=== PATIENT | female | born 1985 | race Caucasian/White ===

== ENCOUNTER 2017-01-09 15:02 | Observation (INO) | payer OTHER ==
[2017-01-09 15:10] VITALS: RESP 16
[2017-01-09] MEDS ORDERED: TDAP ADULT 0.5 ML INJ (BOOSTRIX) IM ONE (15:26)
[2017-01-09] MEDS ORDERED: AMPICILLIN/SULBACTAM 3 GM in NS 100 ML IV ONE (15:28)
--- NOTE | 2017-01-09 15:32 | EDPHY ---
H & P Stated Complaint: l thumb lac (dogbite yesterday) uc gave keflex (had 1 dose)& augm(not taken) Time Seen by Provider: 01/09/17 15:21 HPI/ROS: CHIEF COMPLAINT: Dog bite left thumb HISTORY OF PRESENT ILLNESS: 31-year-old immunocompetent female visiting from [place], in [place] for few more days, was accidentally bitten by her friend's dog yesterday. Bitten on the left thumb. Dogs a domesticated dog with up-to- date immunizations and is still in custody of the screw supervisor . Since this morning the patient noted swelling, limited to no range of motion and lymphangitic streaking . No fever no chills. No nausea or vomiting. No nuchal rigidity. No headache. No chest pain. No abdominal pain. PRIMARY CARE PROVIDER: out of town REVIEW OF SYSTEMS: A ten point review of systems was performed and is negative with the exception of the items mentioned in the HPI PAST MEDICAL & SURGICAL HISTORY: tetanus is out-of-date. No history of immunocompromised or suppressed condition SOCIAL HISTORY:visiting from [place] PHYSICAL EXAM (Prior to examination, patient consented to physical exam, hands were washed and my usual and customary physical exam procedures followed) 1) GENERAL: Well-developed, well-nourished, alert and oriented. Appears nontoxic 2) HEAD: Normocephalic, atraumatic 3) HEENT: Sclera anicteric. 4) NECK: Full range of motion, no meningeal signs. 5) LUNGS: Clear auscultation bilaterally. 6) HEART: Regular rate and rhythm 7) ABDOMEN: No guarding, no rebound, no focal tenderness, 8) MUSCULOSKELETAL: left hand: Patient has positive kanavel sign. Patient has a puncture wound on the lateral and medial aspect of the left thumb at approximately the level of the IP joint. The thumb is erythematous, indurated, swollen, she is keeping the thumb in slight flexion. She has tenderness along the flexor tendon sheath and pain with passive flexion. There is associated lymphangitic streaking extending to approximately the distal 3rd of the forearm 9) BACK: no visual or palpable abnormality. 10) SKIN: left thumb erythema, see musculoskeletal exam findings DIFFERENTIAL DIAGNOSIS: in no particular order including but not limited to traumatic arthrotomy of the left thumb at the IP joint, cellulitis left thumb , infectious tenosynovitis - Personal History LMP (Females 10-55): 15-21 Days Ago Current Tetanus/Diphtheria Vaccine: Unsure Current Tetanus Diphtheria and Acellular Pertussis (TDAP): Unsure - Medical/Surgical History Hx Asthma: No Hx Chronic Respiratory Disease: No Hx Diabetes: No Hx Cardiac Disease: No Hx Renal Disease: No Hx Cirrhosis: No Hx Alcoholism: No Hx HIV/AIDS: No Hx Splenectomy or Spleen Trauma: No Other PMH: denies - Social History Smoking Status: Never smoked Constitutional: Initial Vital Signs Temperature (C) 36.5 C 01/09/17 15:07 Heart Rate 68 01/09/17 15:07 Respiratory Rate 16 01/09/17 15:07 Blood Pressure 122/42 H 01/09/17 15:07 O2 Sat (%) 98 01/09/17 15:07 O2 Delivery Mode Room Air Allergies/Adverse Reactions: No Known Allergies Allergy (Unverified 01/09/17 15:05) Home Medications: Medication Instructions Recorded Augmentin 875 MG TAB (*) 01/09/17 Keflex 01/09/17 Medical Decision Making Procedures: Procedure: Splint A Velcro thumb spica splint was applied by ER automation technician. After application of the splint I returned and re-examined the patient. The splint was adequately immobilizing the joint and distal to the splint the patient's circulation and sensation were intact. Patient shows no signs of compartment syndrome. ED Course/Re-evaluation: Discussed the case with secondary supervising physician Dr. Skinny Wiley who also evaluated the patient. Of concern in this patient is positive kanavel sign to the left thumb concerning for infectious tenosynovitis. She has been informed that I cannot rule out traumatic arthrotomy with IP joint as she is noted to have a puncture wound in this general location. I have recommended starting the patient on IV antibiotics, updating her tetanus, admission to the hospital and having Hand surgery consultation. She is agreeable with this. She has no history of chronic skin infections, no known history of MRSA. Will administer Unasyn and Ancef to cover pasteurella, staph and strep 3:38 p.m.: Phone consultation with Hand surgery Dr. Edwin Dow who agrees with the plan of Unasyn , Ancef, recommends to place her in a Velcro thumb spica and he will consult for hand surgery. 4:07 p.m.: Consultation with hospitalist Dr. Awad who will admit patient - Data Points Laboratory Results: Laboratory Results 01/09/17 15:52 01/09/17 01/09/17 01/09/17 15:52 15:52 15:52 WBC 5.87 10^3/uL 10^3/uL (3.80-9.50) RBC 4.26 10^6/uL 10^6/uL (4.18-5.33) Hgb 13.0 g/dL g/dL (12.6-16.3) Hct 38.0 % % (38.0-47.0) MCV 89.2 fL fL (81.5-99.8) MCH 30.5 pg pg (27.9-34.1) MCHC 34.2 g/dL g/dL (32.4-36.7) RDW 12.4 % % (11.5-15.2) Plt Count 176 10^3/uL 10^3/uL (150-400) MPV 12.2 fL H fL (8.7-11.7) Neut % (Auto) 63.7 % % (39.3-74.2) Lymph % (Auto) 27.6 % % (15.0-45.0) [place] % (Auto) 6.5 % % (4.5-13.0) Eos % (Auto) 1.0 % % (0.6-7.6) Baso % (Auto) 0.9 % % (0.3-1.7) Nucleat RBC Rel Count 0.0 % % (0.0-0.2) Absolute Neuts (auto) 3.74 10^3/uL 10^3/uL (1.70-6.50) Absolute Lymphs (auto) 1.62 10^3/uL 10^3/uL (1.00-3.00) Absolute Monos (auto) 0.38 10^3/uL 10^3/uL (0.30-0.80) Absolute Eos (auto) 0.06 10^3/uL 10^3/uL (0.03-0.40) Absolute Basos (auto) 0.05 10^3/uL 10^3/uL (0.02-0.10) Absolute Nucleated RBC 0.00 10^3/uL 10^3/uL (0-0.01) Immature Gran % 0.3 % % (0.0-1.1) Immature Gran # 0.02 10^3/uL 10^3/uL (0.00-0.10) Sodium Pending Potassium Pending Chloride Pending Carbon Dioxide Pending Anion Gap Pending BUN Pending Creatinine Pending Estimated GFR Pending Glucose Pending Calcium Pending Beta HCG, Qual Pending Departure - Departure Disposition: [facility] Inpatient Acute Clinical Impression: Left thumb infectious tenosynovitis Dog bite of left thumb with infection Qualifiers: Encounter type: initial encounter Qualified Code(s): S61.052A - Open bite of left thumb without damage to nail, initial encounter Condition: Fair
[2017-01-09 16:01] LABS: % IMMATURE GRANULYOCYTES 0.3 % (0.0-1.1); ABSOLUTE IMMATURE GRANULOCYTES 0.02 10^3/uL (0.00-0.10); ADD DIFF? NO; ADD MORPH? NO; ADD SCAN? NO; ATYPICAL LYMPHOCYTE FLAG 0 (0-99); FRAGMENT RBC FLAG 0 (0-99); LEFT SHIFT FLG 0 (0-99); LIPEMIA HEMOLYSIS FLAG 90 (0-99); MEAN CELL HEMOGLOBIN 30.5 pg (27.9-34.1); MEAN CELL HEMOGLOBIN CONCENTR. 34.2 g/dL (32.4-36.7); MEAN CELL VOLUME 89.2 fL (81.5-99.8); MEAN PLATELET VOLUME 12.2 fL (8.7-11.7); PLATELET CLUMPS FLAG 0 (0-99); PLATELET COUNT 176 10^3/uL (150-400); RED BLOOD CELL COUNT 4.26 10^6/uL (4.18-5.33); RED CELL DISTRIBUTION WIDTH 12.4 % (11.5-15.2)
[2017-01-09 16:18] LABS: ANION GAP 11 mEq/L (8-16); CALCIUM 9.6 mg/dL (8.5-10.4); CARBON DIOXIDE 26 mEq/l (22-31); CHLORIDE 103 mEq/L (97-110); CREATININE 0.7 mg/dL (0.6-1.0); GLOMERULAR FILTRATION RATE > 60; GLUCOSE 87 mg/dL (70-100); POTASSIUM 3.6 mEq/L (3.5-5.2); SODIUM 140 mEq/L (134-144)
--- NOTE | 2017-01-09 17:11 | GHP ---
[f rep st] HISTORY AND PHYSICAL DATE OF ADMISSION: 01/09/2017 CHIEF COMPLAINT: Left thumb pain and redness. HISTORY OF PRESENT ILLNESS: The patient is a 31-year-old female seen at the request of the emergenc y room team and Dr. Awad for evaluation of her left thumb. She was bitten by a dog yesterday and had increased swelling and redness. She is being admitted to the hospital for evaluation, manageme nt and IV antibiotics. PAST MEDICAL HISTORY: None. PAST SURGICAL HISTORY: None. MEDICATIONS: None. ALLERGIES: No known drug allergies. FAMILY AND SOCIAL HISTORY: Unremarkable. REVIEW OF SYSTEMS: No high fevers and some redness over the left thumb with swelling. PHYSICAL EXAMINATION: GENERAL: The patient is alert, oriented and appropriate. No acute distress. SKIN: Shows some wounds over the medial and lateral side of her left thumb on the medial and late ral side of the thumb pulp. There is minor erythema present. The patient has some diminished range of motion. MUSCULOSKELETAL: She has no tenderness to palpation along the flexor tendon sheath. T here is no ascending lymphangitis. There is some oozing from one of the wounds, but I cannot palpat e a fluctuant pocket of pus and I can passively move the joint without disproportionate pain. VASCU LAR: Shows good vascularity at the distal tip. ASSESSMENT: Left thumb infection after a dog bite. PLAN AND RECOMMENDATIONS: I have examined the patient. I am going to recommend we do soaks 3 times a day. I put her in some soaking saline with some antibacterial solution. I think this is going t o turn around with splinting and IV antibiotics. I have no plans for the operating room because it does not appear to involve the flexor tendon sheath, but this may take 24 to 48 hours of IV antibiot ics with eventual conversion to Augmentin, depending on what the primary team desires. I am going to check on the patient again tomorrow at some point for re-examination. If there is an e volving infection, we may reconsider surgical intervention. If things are improving, we will contin ue to let the antibiotics and the soaks do the work. I have talked to the patient at length about t his. /[id number]/MODL
[2017-01-09] MEDS ORDERED: ONDANSETRON DISINTEGRATING 4 MG TAB PO PRN (18:10)
[2017-01-09] MEDS ORDERED: ACETAMINOPHEN 325 MG TAB PO PRN (18:10)
[2017-01-09] MEDS ORDERED: ONDANSETRON 4 MG/2 ML VIAL IVP PRN (18:10)
--- NOTE | 2017-01-09 18:47 | GHP ---
[f rep st] HISTORY AND PHYSICAL DATE OF ADMISSION: 01/09/2017 CHIEF COMPLAINT: Dog bite. HISTORY OF PRESENT ILLNESS: A 31-year-old female with no significant past medical history, who is v isiting from [place], intervened in a dog fight, reaching down and her dog bit her hand. The patient reports that her dog is up-to-date with all its rabies vaccinations. The patient noted the wound, k ept it clean for the 1st several hours and then noted that her hand was beginning to swell and she w as having difficulty moving in particular her thumb but then, the rest of her fingers. Patient pres ented to an outside clinic for evaluation and was started on oral Keflex. The patient noted continu ed worsening of her swelling, pain and then streaking of redness, coming up the lower part of her fo rearm. Therefore, re-presented to the emergency department. The patient denies any subjective feve rs or chills. Denies any rigors. Denies any pain in any other joints. Reports still very limited range of motion of her thumb secondary to pain as well as worsening mobility of her other fingers. The patient denies any chest pain, shortness of breath, vision changes, headache, nausea, vomiting, diarrhea, dysuria, hematuria, hematochezia. PAST MEDICAL HISTORY: None. SOCIAL HISTORY: Negative for tobacco. Occasional alcohol. No illicit drugs or marijuana. FAMILY HISTORY: Negative for heart disease. REVIEW OF SYSTEMS: A 10-point review of systems is negative with the exception of that reported in the HPI. PHYSICAL EXAMINATION: VITAL SIGNS: Blood pressure 122/42, heart rate 68, respiratory rate 16, 98% on room air, 36.5. GENERAL: This is a very healthy-appearing young female, in no acute distress. HEENT: Notable for moist mucous membranes. Eye exam is negative for any icterus. CARDIAC: Patient is regular rate and rhythm. A systolic murmur is appreciated at the left sternal border. PULMONARY: She is clear to auscultation bilaterally with good effort. GASTROINTESTINAL: Positive bowel sounds. Abdomen is soft and nontender in all 4 quadrants. MUSCULOSKELETAL: Patient has marked swelling of the thumb on her right hand with additional swellin g of the other 4 digits. The rest of her arm appears normal. She has no lower extremity edema or s welling of her left hand. Mobility is none with passive range of motion of her thumb; you can activ dariana flex her thumb, but she is very uncomfortable. The rest of the other 4 digits, range of motion is normal. SKIN: There is notable erythema of the thumb around the wound and up the dorsum of the thumb, there is streaking that reaches to the wrist. NEUROLOGIC: She is alert and oriented x3. PSYCHIATRIC: She is pleasant and cooperative on interview and examination. DATA: White count is 5.8, hematocrit 38.0, platelets of 176. Sodium 140, creatinine 0.7. Beta HCG is negative. Plain film of the hand which I personally reviewed and interpreted, shows no foreign body or bony changes consistent with osteomyelitis, based on Radiology. No fractures are appreciate d. No subcutaneous air is appreciated. ASSESSMENT AND PLAN: This is a 31-year-old female, presenting with a dog bite to the right thumb. 1. Acute right hand dog bite. The patient has a clear wound which has been cleaned in the emergenc y department. We are initiating Unasyn secondary to the risks for pasteurella infection. The connor robertson will be seen by the hand surgeons, and we will base any operative plan on their assessment. We w ill use p.r.n. pain medications as needed. She is not requiring any currently. We will feed the jarrett hsieh now, and plan to make her n.p.o. after midnight in case there is progression of her wound and a need for the OR in the morning. 2. Prophylaxis: Patient can ambulate. We will hold Lovenox in case she needs to go the operating room. 3. Diet: Regular until n.p.o. after midnight. DISPOSITION: I expect in less than 2 midnights, if the patient responds well to IV antibiotics and is safe to transition to oral. I have discussed the case with the emergency room physician. Willy cantrell will be triaged to the [facility] for IV antibiotics and pain medications. /[id number]/MODL
[2017-01-09] MEDS: IBUPROFEN 600 MG TAB PO PRN (20:33)
[2017-01-09] MEDS: HYDROCODONE/APAP 5/325 TAB PO PRN (23:31)
[2017-01-09] MEDS: AMPICILLIN/SULBACTAM 3 GM in NS 100 ML IV SCH (23:50)
[2017-01-10 05:35] LABS: % IMMATURE GRANULYOCYTES 0.2 % (0.0-1.1); ABSOLUTE IMMATURE GRANULOCYTES 0.01 10^3/uL (0.00-0.10); ADD DIFF? NO; ADD MORPH? NO; ADD SCAN? NO; ATYPICAL LYMPHOCYTE FLAG 0 (0-99); FRAGMENT RBC FLAG 0 (0-99); HEMATOCRIT 37.3 % (38.0-47.0); HEMOGLOBIN 12.7 g/dL (12.6-16.3); LEFT SHIFT FLG 0 (0-99); LIPEMIA HEMOLYSIS FLAG 90 (0-99); MEAN CELL HEMOGLOBIN 30.8 pg (27.9-34.1); MEAN CELL VOLUME 90.3 fL (81.5-99.8); MEAN PLATELET VOLUME 12.2 fL (8.7-11.7); PLATELET CLUMPS FLAG 0 (0-99); PLATELET COUNT 175 10^3/uL (150-400); RED BLOOD CELL COUNT 4.13 10^6/uL (4.18-5.33); RED CELL DISTRIBUTION WIDTH 12.4 % (11.5-15.2)
[2017-01-10] MEDS: AMPICILLIN/SULBACTAM 3 GM in NS 100 ML IV SCH ×2 (06:04→14:01)
[2017-01-10] MEDS: IBUPROFEN 600 MG TAB PO PRN (06:05)
[2017-01-10] MEDS: HYDROCODONE/APAP 5/325 TAB PO PRN (06:11)
[2017-01-10 11:51] VITALS: BP 104/60; PULSE 52; TEMP 98.1; O2SAT 96
--- NOTE | 2017-01-10 13:59 | GHP ---
[f rep st] HISTORY AND PHYSICAL DATE OF ADMISSION: 01/09/2017 CHIEF COMPLAINT: Left thumb pain and infection. The patient has been in the hospital for a little less than 24 hours after dog bite and associated i nfection and cellulitis. She reports she is improved today. It feels much better. PHYSICAL EXAMINATION: On examination today, her IP joint is moving nicely, actively. There is no e vidence of tendon sheath infection. The area of erythema looks good. There is no cellulitis or str eaking, and there is no purulent drainage. There is some redness around the entry wounds, but there is no evidence that there is a pocket of purulence or involvement of the IP joint. ASSESSMENT: Left thumb infection secondary to dog bite. PLAN AND RECOMMENDATIONS: Finish out last dose of Unasyn. Continue twice a day soaks. Discharge t arabella on Augmentin. Call if things worsen over the next 24-48 hours. General instructions for follo wup with me if need be, but they are heading back to [place] on Thursday morning, and I told her to se ek attention of a hand surgeon in [place] for followup, and they do know someone at [facility] who can h elp them. Again, if things dramatically go downhill, she is going to come back in and will consider further action. /[id number]/MODL
--- NOTE | 2017-01-11 03:40 | GDS ---
[f rep st] DISCHARGE SUMMARY DISCHARGE DIAGNOSIS: Left thumb cellulitis secondary to a dog bite. CONSULTATIONS: Dr. Edwin Dow, Hand Surgery. HISTORY: For details, please see the history and physical dated January 09, 2017. In brief, the patien tamia is a 31-year-old female who is otherwise healthy who presented to the emergency department after h er dog bit her hand when she tried to intervene in a dog fight. She was admitted to the hospital fo r further management. HOSPITAL COURSE: The patient was admitted to the observation unit. She was started on IV Unasyn th erapy to cover for possible pasteurella infection. Hand Surgery was consulted and did not feel this affected the tendon sheath and therefore did not require operative management. Her condition signi ficantly improved the following day. She was transitioned to oral Augmentin and was discharged home with instructions to have close followup with Hand Surgery should she not continue to improve. DISPOSITION: Patient is discharged home in stable condition. DISCHARGE MEDICATIONS: Please see [facility] for complete updated outpatient medication list. New me dications on discharge include Augmentin 875 mg p.o. twice daily, #20, no refills; ibuprofen 600 mg p.o. q.8 hours p.r.n., #60, no refills. FOLLOWUP: Follow up with Dr. Dow as needed. She is instructed to follow up with her primary care physician when she returns to [place]. /[id number]/MODL
== END 2017-01-10 16:27 | disposition home or self-care (01) ==
LOC: F1N 16:28
PROVIDERS: ADMIT Hospitalist; ATTEND Hospitalist
DX: L03.012 Cellulitis of left finger (principal); S61.012A Laceration without foreign body of left thumb without damage to nail, initial encounter; W54.0XXA Bitten by dog, initial encounter; Y93.K9 Activity, other involving animal care; Z23 Encounter for immunization
CPT/HCPCS: 73140; 90471; 96374; 99285; G0378; J0295; L3807